=== PATIENT | male | born 1950 | race Caucasian/White ===

== ENCOUNTER 2023-11-25 22:12 | Observation (INO) | payer MEDICARE ==
[2023-11-25 23:14] LABS: Absolute Neutrophil Ct (ANC) 3.36 x10^3/uL (1.78-5.38); BASOPHIL % 0.6 % (0.2-1.2); Basophil (Absolute #) 0.03 x10^3/uL (0.01-0.08); Eosinophil % 6.3 % (0.8-7.0); Eosinophil (Absolute #) 0.33 x10^3/uL (0.04-0.54); Hematocrit 40.3 % (40.1-51.0); Hemoglobin 13.5 g/dL (13.7-17.5); IMMATURE GRAN # 0.02 x10^3u/L (0.001-0.031); IMMATURE GRAN % 0.4 % (0.001-0.429); Lymphocyte (Absolute #) 1.02 x10^3/uL (1.32-3.57); Lymphocytes % 19.4 % (21.8-53.1); Mean Corpuscular Hemoglobin 29.2 pg (25.7-32.2); Mean Corpuscular Hgb Concent. 33.5 g/dL (32.3-36.5); Mean Platelet Volume 9.5 fL (9.4-12.4); Monocyte (Absolute #) 0.51 x10^3/uL (0.30-0.82); Monocytes % 9.7 % (5.3-12.2); Neutrophil % 63.6 % (34.0-67.9); Platelet Count 191 x10^3/uL (163-337); Red Blood Count 4.63 x10^6/uL (4.63-6.08); Red Cell Distribution Width 13.8 % (11.6-14.4); White Blood Count 5.3 x10^3/uL (4.23-9.07)
--- NOTE | 2023-11-25 23:16 | ERPHSYRPT ---
- History of Present Illness Time Seen by Provider: 11/25/23 22:13 Source: patient, family Exam Limitations: no limitations Patient Subjective Stated Complaint: pt states his bp was high at home today- 176/97. and he has had dizzieness when shelbi standing up Triage Nursing Assessment: pt alert and oriented, answers questions approp. pt ambulates into room with steady gait noted. respirations nonlabored. skin warm and dry. pupils equal and reactive. pt moves extremities without diff. Physician History: 73-year-old male with history of hypertension presented in the ER with complaints of sudden onset feeling dizziness/spinning sensation around 9:40 PM when he stood up to go to the bathroom. Patient reports he stands up, feels spinning sensation inside the head and gets off balance with tendency to fall onto 1 side or the other. Denies any numbness tingling or weakness. No visual disturbance. Patient checked his blood pressure which was in 170s. Denies any chest pain palpitations or shortness of breath. No nausea vomiting or diarrhea. Allergies/Adverse Reactions: Penicillins Allergy (Unknown, Verified 11/25/23 22:42) Home Medications: Amlodipine Besylate/Benazepril [Amlodipine-Benazepril 5-40 mg] 1 each PO DAILY 11/25/23 [History] Triamterene/Hydrochlorothiazid [Triamterene-Hctz 37.5-25 mg Tb] 1 each PO DAILY 11/25/23 [History] Hx Tetanus, Diphtheria Vaccination/Date Given: No (unsure) Hx Influenza Vaccination/Date Given: No Hx Pneumococcal Vaccination/Date Given: No Immunizations Up to Date: No Travel Risk - International Travel Have you traveled outside of the country in past 3 weeks: No - Emerging Infectious Disease Are you exhibiting symptoms associated with any current EIDs: No - Review of Systems Constitutional: No Symptoms Eyes: No Symptoms Ears, Nose, & Throat: No Symptoms Respiratory: No Symptoms Cardiac: No Symptoms Abdominal/Gastrointestinal: No Symptoms Genitourinary Symptoms: No Symptoms Musculoskeletal: No Symptoms Skin: No Symptoms Neurological: Dizziness Psychological: No Symptoms Endocrine: No Symptoms Hematologic/Lymphatic: No Symptoms Immunological/Allergic: No Symptoms - Past Medical History Cardiac History: Hypertension Other Medical History: hx of cancer - Social History Smoking Status: Never smoker Exposure to second hand smoke: No Drug Use: none - Social Determinants of Health Will the patient participate in the screening: Declined to provide - Nursing Vital Signs Nursing Vital Signs: Initial Vital Signs Temperature 97.7 F 11/25/23 22:24 Pulse Rate 82 11/25/23 22:24 Respiratory Rate 18 11/25/23 22:24 Blood Pressure 168/89 11/25/23 22:24 O2 Sat by Pulse Oximetry 97 11/25/23 22:24 Pain Scale Pain Intensity 0 - Erica Coma Scale Best Eye Response ([place]): (4) open spontaneously Best Verbal Response ([place]): (5) oriented Best Motor Response ([place]): (6) obeys commands Erica Total: 15 - Physical Exam General Appearance: no apparent distress, alert, anxiety Eye Exam: bilateral eye: normal inspection, PERRL, EOMI Ears, Nose, Throat Exam: normal ENT inspection, TMs normal, pharynx normal, moist mucous membranes Neck Exam: normal inspection, non-tender, supple, full range of motion Respiratory: normal breath sounds, lungs clear Cardiovascular: regular rate/rhythm, normal heart sounds Gastrointestinal: soft, normal bowel sounds, No tenderness Back Exam: normal inspection Extremity Exam: normal inspection, normal range of motion, pelvis stable Mental Status: alert, 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, 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 Exam: normal hearing, normal speech, PERRL Coordination/Gait: normal finger to nose, normal cerebellar function Motor/Sensory: no motor deficit, no sensory deficit, no pronator drift, negative Babinski's sign Skin Exam: normal color SpO2 Interpretation: normal SpO2: 97 O2 Delivery: Room Air - Course EKG Interpreted by Me: RATE (80), Sinus Rhythm, NORMAL AXIS, NORMAL INTERVALS, NORMAL QRS Ordered Tests: Active Orders 24 hr Category Date Time Status Admission Discharge Rn STAT Care 11/25/23 22:37 Active EKG-ER Only STAT Care 11/25/23 22:36 Active IV Insertion STAT Care 11/25/23 22:36 Active NPO (ED) STAT Care 11/25/23 22:36 Active CHEST 1 VIEW (PORTABLE) Stat Exams 11/25/23 22:[address] ANGIOGRAPHY NECK [CT] Stat Exams 11/25/23 23:32 Ordered CTA HEAD W AND/OR WO CONTRAST [CT] Stat Exams 11/25/23 23:32 Ordered HEAD WITHOUT CONTRAST [CT] Stat Exams 11/25/23 22:53 Completed BLOOD CULTURE Stat Lab 11/25/23 23:21 Received CBC W DIFF Stat Lab 11/25/23 23:11 Completed CMP Stat Lab 11/25/23 23:11 Completed Lactic Acid Stat Lab 11/25/23 23:04 Completed MAGNESIUM Stat Lab 11/25/23 23:11 Completed PROTIME WITH INR Stat Lab 11/25/23 23:11 Completed PTT Stat Lab 11/25/23 23:11 Completed TROPONIN Q3H Lab 11/25/23 23:11 Completed TROPONIN Q3H Lab 11/26/23 01:45 Ordered TROPONIN Q3H Lab 11/26/23 04:45 Ordered TROPONIN Q3H Lab 11/26/23 07:45 Ordered UA W/RFX UR CULTURE Stat Lab 11/25/23 22:36 Ordered Medication Summary Generic Name Dose Route Start Last Admin Trade Name Freq PRN Reason Stop Dose Admin Sodium Chloride 1,000 mls @ 100 mls/hr 11/25/23 22:45 11/25/23 23:48 Sodium Chloride 0.9% 1000 Ml IV 12/25/23 22:44 100 mls/hr .Q10H LEANDRO Administration Discontinued Medications Generic Name Dose Route Start Last Admin Trade Name Freq PRN Reason Stop Dose Admin Aspirin 324 mg 11/25/23 23:33 11/25/23 23:48 Aspirin 81 Mg Tab.Chew PO 11/25/23 23:34 324 mg STAT ONE Administration Aspirin Confirm 11/25/23 23:39 Aspirin 81 Mg Tab.Chew Administered 11/25/23 23:40 Dose 324 mg .ROUTE .eblizz-MED ONE Lab/Rad Data: Laboratory Result Diagrams 11/25/23 23:11 11/25/23 23:11 Laboratory Results 11/25/23 11/25/23 11/25/23 Range/Units 23:11 23:11 23:11 WBC (4.23-9.07) x10^3/uL RBC (4.63-6.08) x10^6/uL Hgb (13.7-17.5) g/dL Hct (40.1-51.0) % MCV (79.0-92.2) fL MCH (25.7-32.2) pg MCHC (32.3-36.5) g/dL RDW (11.6-14.4) % Plt Count (163-337) x10^3/uL MPV (9.4-12.4) fL Gran % (34.0-67.9) % Immature Gran % (Auto) (0.001-0.429) % Nucleat RBC Rel Count (0.00-0.2) % Eos # (Auto) (0.04-0.54) x10^3/uL Immature Gran # (Auto) (0.001-0.031) x10^3u/L Absolute Lymphs (auto) (1.32-3.57) x10^3/uL Absolute Monos (auto) (0.30-0.82) x10^3/uL Absolute Nucleated RBC (0.00-0.012) x10^3u/L Lymphocytes % (21.8-53.1) % Monocytes % (5.3-12.2) % Eosinophils % (0.8-7.0) % Basophils % (0.2-1.2) % Absolute Granulocytes (1.78-5.38) x10^3/uL Basophils # (0.01-0.08) x10^3/uL PT 10.9 (9.4-12.5) SECONDS INR 1.00 (0.8-3.0) APTT 27.6 (25.1-36.5) SECONDS Sodium 141 (135-145) mmol/L Potassium 3.5 (3.5-5.1) mmol/L Chloride 107 (98-107) mmol/L Carbon Dioxide 22 (22-30) mmol/L Anion Gap 15.5 H (5-15) MEQ/L BUN 22 H (9-20) mg/dL Creatinine 1.34 H (0.66-1.25) mg/dL Estimated GFR 55.9 ML/MIN Glucose 150 H (74-106) mg/dL Lactic Acid (0.4-2.0) Calcium 9.4 (8.4-10.2) mg/dL Magnesium 1.8 (1.6-2.3) mg/dL Total Bilirubin 0.90 (0.2-1.3) mg/dL AST 35 (17-59) U/L ALT 47 (0-50) U/L Alkaline Phosphatase 75 (38-126) U/L Troponin I < 0.012 (0.000-0.033) ng/mL Serum Total Protein 6.6 (6.3-8.2) g/dL Albumin 4.2 (3.5-5.0) g/dL 11/25/23 11/25/23 Range/Units 23:11 23:04 WBC 5.3 (4.23-9.07) x10^3/uL RBC 4.63 (4.63-6.08) x10^6/uL Hgb 13.5 L (13.7-17.5) g/dL Hct 40.3 (40.1-51.0) % MCV 87.0 (79.0-92.2) fL MCH 29.2 (25.7-32.2) pg MCHC 33.5 (32.3-36.5) g/dL RDW 13.8 (11.6-14.4) % Plt Count 191 (163-337) x10^3/uL MPV 9.5 (9.4-12.4) fL Gran % 63.6 (34.0-67.9) % Immature Gran % (Auto) 0.4 (0.001-0.429) % Nucleat RBC Rel Count 0.0 (0.00-0.2) % Eos # (Auto) 0.33 (0.04-0.54) x10^3/uL Immature Gran # (Auto) 0.02 (0.001-0.031) x10^3u/L Absolute Lymphs (auto) 1.02 L (1.32-3.57) x10^3/uL Absolute Monos (auto) 0.51 (0.30-0.82) x10^3/uL Absolute Nucleated RBC 0.00 (0.00-0.012) x10^3u/L Lymphocytes % 19.4 L (21.8-53.1) % Monocytes % 9.7 (5.3-12.2) % Eosinophils % 6.3 (0.8-7.0) % Basophils % 0.6 (0.2-1.2) % Absolute Granulocytes 3.36 (1.78-5.38) x10^3/uL Basophils # 0.03 (0.01-0.08) x10^3/uL PT (9.4-12.5) SECONDS INR (0.8-3.0) APTT (25.1-36.5) SECONDS Sodium (135-145) mmol/L Potassium (3.5-5.1) mmol/L Chloride (98-107) mmol/L Carbon Dioxide (22-30) mmol/L Anion Gap (5-15) MEQ/L BUN (9-20) mg/dL Creatinine (0.66-1.25) mg/dL Estimated GFR ML/MIN Glucose (74-106) mg/dL Lactic Acid 1.9 (0.4-2.0) Calcium (8.4-10.2) mg/dL Magnesium (1.6-2.3) mg/dL Total Bilirubin (0.2-1.3) mg/dL AST (17-59) U/L ALT (0-50) U/L Alkaline Phosphatase (38-126) U/L Troponin I (0.000-0.033) ng/mL Serum Total Protein (6.3-8.2) g/dL Albumin (3.5-5.0) g/dL - Progress Progress: improved, re-examined Progress Note: 11/25/23 23:50 73-year-old with hypertension is evaluated for sudden onset dizziness/spinning sensation. Patient has no focal neurodeficit. I have obtained stroke protocol CT which is negative. EKG is normal sinus rhythm. Baseline workup showed norm al white count, unremarkable chemistries and negative troponins. Has CKD with stable creatinine of 1.3. Chest x-ray is negative for any acute cardiopulmonary findings reviewed by me, official report is pending. I have obtained [facility] neurology consult, has seen patient, do not think needs any immediate intervention, getting CTAs head and neck now and MRI in the morning. Patient is given full dose aspirin per neurology recommendations, will continue with permissive hypertension. I have discussed with hospitalist Dr. Eric, reviewed history, workup and agreed with admission. Shared the results of workup with patient and family, plan of admission which they understand and agree. Discussed with : Alma Will see patient in: hospital (observation) Counseled pt/family regarding: lab results, diagnosis, need for follow-up, rad results Medical Desision Making - Independent Historian Additional History obtained from: Family - Discussion of managment Care discussed with:: specialist Reviewed:: Test results Agreed on:: Treatment plan, place in obs Will see patient: in hospital ([facility] neurology, Dr. Eric hospitalist) - Diagnostic Testing Diagnostic test were ordered, analyzed, and reviewed by me: Yes Radiological Interpretation: Interpreted by me, Reviewed by me, Teleradiologist Report - Departure Departure Disposition: Observation Clinical Impression: Dizziness Condition: Stable Critical Care Time: No Referrals: ANGELES FORRESTER [Primary Care Provider] - Follow up/PCP as directed
--- NOTE | 2023-11-25 23:23 | XRAY ---
CLINICAL HISTORY: dizziness COMPARISON: None. TECHNIQUE: Axial noncontrast CT scan of the brain was performed from the skull base to the high parietal region. One of the following dose reduction techniques were utilized for this exam: Automated exposure control, adjustment of the mA and/or kV according to patient size, use of iterative reconstruction. 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 There are few tiny ill-defined iso-to hypodense areas noted in the subcortical white matter bilaterally, suggestive of microvascular ischemic changes. The ventricular system, cortical sulci and basal cisterns are prominent consistent with senile changes. The rets of visualized brain parenchyma shows normal appearance. Georges-white matter differentiation is maintained. Normal CT appearance of the posterior fossa structures namely the cerebellar hemispheres, brainstem and cerebellar peduncles. The IACs are unremarkable. The cerebello-pontine angles are clear. The osseous structures in the skull base are unremarkable. No definite calvarium fractures. The scanned paranasal sinuses show mucosal thickening with scattered hypodensities in bilateral maxillary sinuses, representing inspissated mucus/superadded fungal infection. Mucosal thickening is also identified in bilateralethmoid and frontal sinuses. IMPRESSION: 1. No major acute territorial infarction at present study. Early changes of acute ischemic infarct may sometimes not be detected on a CT scan. If clinically suspicious, MRI with diffusion-weighted imaging is recommended for further evaluation. 2. 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 3. Chronic microvascular ischemic angiopathy with senile cortical atrophy Electronically Signed by: Geraldine Carrillo MD. (11/25/2023 23:18:10 EDT)
[2023-11-25 23:27] LABS: ALBUMIN 4.2 g/dL (3.5-5.0); ANION GAP 15.5 MEQ/L (5-15); BILIRUBIN,TOTAL 0.9 mg/dL (0.2-1.3); Calcium 9.4 mg/dL (8.4-10.2); Creatinine 1 1.34 mg/dL (0.66-1.25); EST GLOMERULAR FILTRATION RATE 55.9 ML/MIN; MAGNESIUM 1.8 mg/dL (1.6-2.3); Potassium 3.5 mmol/L (3.5-5.1); Total Protein 6.6 g/dL (6.3-8.2)
[2023-11-25 23:28] LABS: PROTIME 10.9 SECONDS (9.4-12.5); PTT 27.6 SECONDS (25.1-36.5)
--- NOTE | 2023-11-25 23:34 | PCM.CONS ---
History of Present Illness - Neuro Consultation Date of Consultation Date: 11/25/23 ED Arrival Date & Time: 11/25/23 22:12 Providers: Attending Provider: ED Provider: PABLO CARTER MD Consulting Provider: KATINA SILVEIRA MD cc:: The requesting physician will be sent a copy of the consult. - History of Present Illness HPI: The patient is a 73M Teleneurology Attestation & Consent: As the provider for this telehealth consult requested by the patients primary attending physician, I attest that I introduced myself to the patient, provided my credentials, disclosed my loc ation, and determined that, based on a review of the patients chart and discussion with the patients primary team, telemedicine via a real-time, two- way, interactive audio and video platform is an appropriate and effective means of providing this service. The patient and I mutually agree that this visit is appropriate for telemedicine. The patient has consented to this telemedicine visit. Last known normal: 8:30pm RADIO ELECTRONICS TECHNICIAN Time of stroke alert: 10:12 PM RADIO ELECTRONICS TECHNICIAN Time stroke alert page returned: 10:16 PM RADIO ELECTRONICS TECHNICIAN Was the patient seen on camera?: yes 73M presents with acute onset of room spinning sensation which started around 8:30pm RADIO ELECTRONICS TECHNICIAN. He says he was laying down and experienced severe room spinning sensation when he tried to stand up. He denies headache, N/V, tinnitus, focal weakness, paresthesia,h/o stroke. Room spinning sensation has persisted up to presentation and is exacerbated by standing up too quick and relieved by laying still. Nurse and patient's sister Sharda are present in the room. Review of Systems - Review of Systems Review of Systems (Narrative): Pertinent positive and negative findings as per HPI. All other systems negative. Constitutional: Denies fevers, chills, weight loss ENT: Denies tinnitus Ophthalmology: Denies diplopia, blurred vision, vision loss Respiratory: Denies SOB, cough Cardiovascular: Denies chest pains, palpitations GI: Denies nausea, vomiting : Denies hematuria Hematology: Denies excessive bleeding Musculoskeletal: Denies back pain, neck pain, joint pain Neurology: Denies headache, altered mentation, syncope Mental Health: Denies anxiety Dermatology: Denies rash - Past Medical History Cardiac History: Hypertension Comment: hx of cancer - Social History Smoking Status: Never smoker Exposure to second hand smoke: No Alcohol: None Drug Use: none - Social Determinants of Health Will the patient participate in the screening: Declined to provide Physical Exam - Vital Signs Vital Signs: Vital Signs - 24 hr 11/25/23 11/25/23 22:24 23:29 Temperature 97.7 F Pulse Rate 82 Respiratory 18 Rate Blood Pressure 168/89 [Left Arm] O2 Sat by Pulse 97 97 Oximetry - Physical Exam Tele-Neuro Physical Exam (Narrative): Gen: Well developed, well nourished. No acute distress. MS: Awake and oriented. Alert. Fund of knowledge, memory, and language at baseline. CV: Regular rate. No edema. computer hardware developer: AR, EOMI. +blink. Unable to visualize fundi. Sensation intact. Face is symmetric. Hearing intact. Trapezii strong. Tongue midline. Motor: Antigravity in all 4 extremities. Normal tone and bulk. Sens: Intact to light touch in all 4 extremities. MSR: Unable to assess through telemedicine, no clonus noted. Mvmt: No tremors noted. MAI/FTN intact. Gait: Deferred. NIHSS Mental status (0-3): 0 Month/age (0-2): 0 Commands (0-2): 0 Best Gaze (0-2): 0 Visual Kim (0-3):0 Facial weakness (0-3): 0 LUE (0-4): 0 RUE (0-4): 0 LLE (0-4): 0 RLE (0-4): 0 Ataxia (0-2): 0 Sensation (0-2): 0 Aphasia (0-3): 0 Dysarthria (0-2): 0 Extinction (0-2): 0 NIHSS Total: 0 Results - Labs Lab/Micro Results: Lab Results-Last 24 Hours 11/25/23 11/25/23 11/25/23 Range/Units 23:04 23:11 23:11 WBC 5.3 (4.23-9.07) x10^3/uL RBC 4.63 (4.63-6.08) x10^6/uL Hgb 13.5 L (13.7-17.5) g/dL Hct 40.3 (40.1-51.0) % MCV 87.0 (79.0-92.2) fL MCH 29.2 (25.7-32.2) pg MCHC 33.5 (32.3-36.5) g/dL RDW 13.8 (11.6-14.4) % Plt Count 191 (163-337) x10^3/uL MPV 9.5 (9.4-12.4) fL Gran % 63.6 (34.0-67.9) % Immature Gran % (Auto) 0.4 (0.001-0.429) % Nucleat RBC Rel Count 0.0 (0.00-0.2) % Eos # (Auto) 0.33 (0.04-0.54) x10^3/uL Immature Gran # (Auto) 0.02 (0.001-0.031) x10^3u/L Absolute Lymphs (auto) 1.02 L (1.32-3.57) x10^3/uL Absolute Monos (auto) 0.51 (0.30-0.82) x10^3/uL Absolute Nucleated RBC 0.00 (0.00-0.012) x10^3u/L Lymphocytes % 19.4 L (21.8-53.1) % Monocytes % 9.7 (5.3-12.2) % Eosinophils % 6.3 (0.8-7.0) % Basophils % 0.6 (0.2-1.2) % Absolute Granulocytes 3.36 (1.78-5.38) x10^3/uL Basophils # 0.03 (0.01-0.08) x10^3/uL Sodium 141 (135-145) mmol/L Potassium 3.5 (3.5-5.1) mmol/L Chloride 107 (98-107) mmol/L Carbon Dioxide 22 (22-30) mmol/L Anion Gap 15.5 H (5-15) MEQ/L BUN 22 H (9-20) mg/dL Creatinine 1.34 H (0.66-1.25) mg/dL Estimated GFR 55.9 ML/MIN Glucose 150 H (74-106) mg/dL Lactic Acid 1.9 (0.4-2.0) Calcium 9.4 (8.4-10.2) mg/dL Magnesium 1.8 (1.6-2.3) mg/dL Total Bilirubin 0.90 (0.2-1.3) mg/dL AST 35 (17-59) U/L ALT 47 (0-50) U/L Alkaline Phosphatase 75 (38-126) U/L Serum Total Protein 6.6 (6.3-8.2) g/dL Albumin 4.2 (3.5-5.0) g/dL - Radiology Orders Radiology Orders: Radiology Procedures Category Date Time Status CHEST 1 VIEW (PORTABLE) Stat Exams 11/25/23 22:53 Taken HEAD WITHOUT CONTRAST [CT] Stat Exams 11/25/23 22:53 Completed - CT Impressions CT Head w/contrast Status: discussed w/ radiologist (discussed with Dr Carter) Impressions & Recommendations - ED Arrival Time ED Arrival Date & Time: ED Arrival Date and Time 11/25/23 22:12 Last known well time: - NIHSS NIHSS: 0 Pre-Admission mRS: 0 Is patient an IV TPA candidate (if no specify reason): No If not, specify reason:: NIHSS=0, likley peripheral vertigo IV Thrombolysis Standard of Care: . Assessment & Plan - Encounter Encounter: Acute stroke vs peripheral vertigo Stroke acute management:not candidate for iv thrombolysis due to NIHSS=0 and likelihood of peripheral vertigo - Admit to stroke unit - Frequent neuro-checks (q4h) - Permissive HTN for 24h:systolic BP goal up to 220, diastolic up to 120 mmHg for 24h. - Only treat if SBP>220 and or DBP>120 then gradually lower BP after 24hrs to goal <130/80 - Baseline EKG and CXR - Basic labs: CBC, CMP, coagulation panel and troponin - Intravenous hydration with normal saline at 75cc per hour - NPO until after WEEDER eval -Replace electrolytes prn-Keep K >4.0, Mg > 2.0. - Head of bed > 30 degrees for aspiration prevention and aspiration precautions -meclizine 25mg tid prn for vertigo -vestibular rehab Stroke workup: -CTH:no acute intracranial process. remote left basal ganglia infarct -stat CTA head and neck:If LVO, get stat neuro interventional consult -MRI: -Trans-thoracic echocardiogram with bubble study -Continuous cardiac telemetry to monitor for arrhythmia -Stroke labwork: HgbA1C, lipid panel, urine drug screen Secondary prevention of stroke: -Aspirin 325mg daily -Atorvastatin 40 mg daily (long-term goal LDL < 70) -Tight glucose control (long-term goal HgbA1c < 7%) -Stroke education and counseling -If smoker, smoking counseling and offer assistance with smoking cessation (possible nicotine patch) Stroke rehabilitation: -Physical therapy, occupational therapy, speech therapy consults -Consult social work and case management for help with discharge Other medical issues: HTN: Medical Decision making: Acute issues prompting hospitalization enumerated, reviewed and managed individually as above. Complexity of Chronic Problems enumerated, reviewed and managed individually as above. Independently interpreted labs and radiology. Risk of morbidity reviewed. Additional testing/treatment as discussed individually above. Discussed findings with patient/family, charge nurse/bedside nurse. Included in the discussion were the latest clinical, laboratory and imaging findings. We also discussed updated working diagnosis, overall impression and updated plan of care. In this discussion, current plan for treatment, medication indication discussed. Patient/family member agreeable to discussed plan of care. I answered all the questions to their satisfaction. Acute care plan was discussed with Dr Carter Thank you for allowing us to participate in this patients care. Please call [facility] with questions, concerns, or change in patients neurological status.
[2023-11-25] MEDS ORDERED: BABY ASPIRIN 81 MG CHEW ONE (23:39)
[2023-11-25] MEDS: Sodium Chloride 0.9% 1000 ML 1,000 ML IV SCH (23:48)
[2023-11-25] MEDS: BABY ASPIRIN 81 MG CHEW PO ONE (23:48)
--- NOTE | 2023-11-26 01:13 | XRAY ---
CLINICAL HISTORY: dizziness COMPARISON: CT head same date reviewed TECHNIQUE: Axial CT angiography of the head was done with contrast and sagittal and coronal reformats with MIP reconstructions. One of the following dose reduction techniques was utilized for this exam: Automated exposure control, adjustment of the mA and/or kV according to patient size, use of iterative reconstruction. 100cc Isovue 370. FINDINGS: The cavernous portions of bilateral internal carotid arteries show minimal intimal calcification. Bilateral anterior and middle cerebral arteries appear normal in caliber and contrast opacification. The basilar artery and bilateral posterior cerebral arteries appear normal in caliber and contrast opacification. The right vertebral artery is hypoplastic with the dominant left vertebral artery, otherwise visualized vertebral arteries show normal contrast opacification. No evidence of definite thrombus / arteriovenous malformation. IMPRESSION: No significant major vascular thrombosis in CT angiography of the head. Electronically Signed by: Geraldine Carrillo MD. (11/26/2023 01:09:03 EDT)
--- NOTE | 2023-11-26 01:29 | XRAY ---
CLINICAL HISTORY: dizziness COMPARISON: None. TECHNIQUE: Axial CT angiography of the neck was done with contrast and sagittal and coronal reformats with MIP reconstructions. One of the following dose reduction techniques was utilized for this exam: Automated exposure control, adjustment of the mA and/or kV according to patient size, and use of iterative reconstruction. (100cc Isovue 370). CTDI: 17.22mGy; DLP: 707.51mGy-cm. FINDINGS: The aortic arch shows no significant atherosclerotic changes or calcified plaques. Normal branching pattern noted. Bilateral common carotid arteries show mild atherosclerotic changes, otherwise normal in contrast to opacification. Calcified plaques are seen at bilateral carotid bulbs and ostial/proximal segments of the internal carotid arteries bilaterally. A small eccentric fibrofatty plaque was seen at the ostial/proximal segment of the right internal carotid artery, causing nearly 20% luminal narrowing. The cervical portions of bilateral internal carotid arteries appear normal in caliber and contrast opacification. Bilateral external carotid arteries appear normal in caliber and contrast opacification. The right vertebral artery is hypoplastic with the dominant left vertebral artery, otherwise, visualized vertebral arteries show normal contrast opacification. No arteriovenous malformation was noted. IMPRESSION: 1. No critical thrombosis was seen in major neck vessels. 2. Calcified plaques at bilateral carotid bulbs and osteoproximal segment of the internal carotid arteries. 3. A small eccentric fibrofatty plaque was seen at the osteoproximal segment of the right internal carotid artery, causing nearly 20% luminal narrowing. Electronically Signed by: Geraldine Carrillo MD. (11/26/2023 01:24:11 EDT)
--- NOTE | 2023-11-26 04:45 | PCM.HP ---
History of Present Illness - Chief Complaint Chief Complaint: dizziness Date: 11/26/23 History of Present Illness: Mr. Avila is 73 year-old gentleman with HTN and CKD who presents wt dizziness. He admits to sudden onset of dizziness when going from a sitting to a standing position this evening thus prompting him to seek medical attention. These episodes were not associated with syncope, presyncope, or any neurological symptoms or signs, and his dizziness would improve with sitting. Upon arrival to [place], his blood pressure was 170s/80s in the setting of laboratory data that was remarkable only for a slightly elevated Cr and imaging that was negative. On my examination, he is resting comfortably currently denying any fevers, chills, nausea, vomiting, diarrhea, syncope, presyncope, visual changes, orthopnea, PND, odynophagia, dysphagia, chest pain, shortness of breath, belly pain, dysuria, hematuria, melena, hematochezia, or neurological changes. All other systems were reviewed and were negative. - Review of Systems Constitutional: No Other ( PER HPI) Medications & Allergies Home Medications: Home Medication List Amlodipine Besylate/Benazepril [Amlodipine-Benazepril 5-40 mg] 1 each PO DAILY 11/25/23 [History Confirmed 11/25/23] Triamterene/Hydrochlorothiazid [Triamterene-Hctz 37.5-25 mg Tb] 1 each PO DAILY 11/25/23 [History Confirmed 11/25/23] Allergies/Adverse Reactions: Allergies Allergy/AdvReac Type Severity Reaction Status Date / Time Penicillins Allergy Unknown Verified 11/25/23 22:42 - Past Medical History Past Medical History: Yes Neurological History: No Pertinent History ENT History: No Pertinent History Cardiac History: Hypertension Respiratory History: No Pertinent History Endocrine Medical History: No Pertinent History Musculoskelatal History: No Pertinent History GI Medical History: No Pertinent History History: No Pertinent History Pyscho-Social History: No Pertinent History Male Reproductive Disorders: Testicular Cancer Comment: hx of cancer - Past Surgical History Past Surgical History: Yes Neuro Surgical History: No Pertinent History Cardiac History: No Pertinent History Respiratory Surgery: No Pertinent History GI Surgical History: No Pertinent History Genitourinary Surgical Hx: No Pertinent History Musculskeletal Surgical Hx: No Pertinent History Male Surgical History: Testicular Surgery Significant Family History: no pertinent family hx - Social History Smoking Status: Never smoker Exposure to second hand smoke: No Alcohol: None Drug Use: none - Social Determinants of Health Will the patient participate in the screening: Declined to provide - Physical Exam Vital Signs: Vital Signs - 24 hr Temp Pulse Resp BP BP Pulse Ox 11/26/23 04:00 97.2 F 76 19 162/86 94 L 11/26/23 02:15 97.2 F 76 19 162/86 94 L 11/26/23 01:00 76 19 144/86 95 11/26/23 00:59 96 11/26/23 00:48 75 16 153/89 96 11/26/23 00:00 76 17 149/87 97 11/25/23 23:55 97 11/25/23 23:32 97 11/25/23 23:00 79 18 156/90 97 11/25/23 22:40 176/95 96 11/25/23 22:24 97.7 F 82 18 168/89 97 General Appearance: no apparent distress, alert Neurologic Exam: alert, 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, cooperative, normal mood/affect, nml cerebellar function, nml station & gait, sensation nml, No motor deficits Eye Exam: PERRL/EOMI, eyes nml inspection Ears, Nose, Throat Exam: normal ENT inspection, TMs normal, pharynx normal, moist mucous membranes Neck Exam: normal inspection, non-tender, supple, full range of motion Respiratory Exam: normal breath sounds, lungs clear, No respiratory distress Cardiovascular Exam: regular rate/rhythm, normal heart sounds, normal peripheral pulses Gastrointestinal/Abdomen Exam: soft, normal bowel sounds, No tenderness, No mass Back Exam: normal inspection, normal range of motion, No CVA tenderness, No vertebral tenderness Extremity Exam: normal inspection, normal range of motion, pelvis stable Skin Exam: normal color, warm, dry, No rash Lymphatic Exam: No adenopathy Results - Labs Lab/Micro Results: Lab Results-Last 24 Hours 11/25/23 11/25/23 11/25/23 Range/Units 23:04 23:11 23:11 WBC 5.3 (4.23-9.07) x10^3/uL RBC 4.63 (4.63-6.08) x10^6/uL Hgb 13.5 L (13.7-17.5) g/dL Hct 40.3 (40.1-51.0) % MCV 87.0 (79.0-92.2) fL MCH 29.2 (25.7-32.2) pg MCHC 33.5 (32.3-36.5) g/dL RDW 13.8 (11.6-14.4) % Plt Count 191 (163-337) x10^3/uL MPV 9.5 (9.4-12.4) fL Gran % 63.6 (34.0-67.9) % Immature Gran % (Auto) 0.4 (0.001-0.429) % Nucleat RBC Rel Count 0.0 (0.00-0.2) % Eos # (Auto) 0.33 (0.04-0.54) x10^3/uL Immature Gran # (Auto) 0.02 (0.001-0.031) x10^3u/L Absolute Lymphs (auto) 1.02 L (1.32-3.57) x10^3/uL Absolute Monos (auto) 0.51 (0.30-0.82) x10^3/uL Absolute Nucleated RBC 0.00 (0.00-0.012) x10^3u/L Lymphocytes % 19.4 L (21.8-53.1) % Monocytes % 9.7 (5.3-12.2) % Eosinophils % 6.3 (0.8-7.0) % Basophils % 0.6 (0.2-1.2) % Absolute Granulocytes 3.36 (1.78-5.38) x10^3/uL Basophils # 0.03 (0.01-0.08) x10^3/uL PT (9.4-12.5) SECONDS INR (0.8-3.0) APTT (25.1-36.5) SECONDS Sodium 141 (135-145) mmol/L Potassium 3.5 (3.5-5.1) mmol/L Chloride 107 (98-107) mmol/L Carbon Dioxide 22 (22-30) mmol/L Anion Gap 15.5 H (5-15) MEQ/L BUN 22 H (9-20) mg/dL Creatinine 1.34 H (0.66-1.25) mg/dL Estimated GFR 55.9 ML/MIN Glucose 150 H (74-106) mg/dL Lactic Acid 1.9 (0.4-2.0) Calcium 9.4 (8.4-10.2) mg/dL Magnesium 1.8 (1.6-2.3) mg/dL Total Bilirubin 0.90 (0.2-1.3) mg/dL AST 35 (17-59) U/L ALT 47 (0-50) U/L Alkaline Phosphatase 75 (38-126) U/L Troponin I (0.000-0.033) ng/mL Serum Total Protein 6.6 (6.3-8.2) g/dL Albumin 4.2 (3.5-5.0) g/dL 11/25/23 11/25/23 11/26/23 Range/Units 23:11 23:11 01:51 WBC (4.23-9.07) x10^3/uL RBC (4.63-6.08) x10^6/uL Hgb (13.7-17.5) g/dL Hct (40.1-51.0) % MCV (79.0-92.2) fL MCH (25.7-32.2) pg MCHC (32.3-36.5) g/dL RDW (11.6-14.4) % Plt Count (163-337) x10^3/uL MPV (9.4-12.4) fL Gran % (34.0-67.9) % Immature Gran % (Auto) (0.001-0.429) % Nucleat RBC Rel Count (0.00-0.2) % Eos # (Auto) (0.04-0.54) x10^3/uL Immature Gran # (Auto) (0.001-0.031) x10^3u/L Absolute Lymphs (auto) (1.32-3.57) x10^3/uL Absolute Monos (auto) (0.30-0.82) x10^3/uL Absolute Nucleated RBC (0.00-0.012) x10^3u/L Lymphocytes % (21.8-53.1) % Monocytes % (5.3-12.2) % Eosinophils % (0.8-7.0) % Basophils % (0.2-1.2) % Absolute Granulocytes (1.78-5.38) x10^3/uL Basophils # (0.01-0.08) x10^3/uL PT 10.9 (9.4-12.5) SECONDS INR 1.00 (0.8-3.0) APTT 27.6 (25.1-36.5) SECONDS Sodium (135-145) mmol/L Potassium (3.5-5.1) mmol/L Chloride (98-107) mmol/L Carbon Dioxide (22-30) mmol/L Anion Gap (5-15) MEQ/L BUN (9-20) mg/dL Creatinine (0.66-1.25) mg/dL Estimated GFR ML/MIN Glucose (74-106) mg/dL Lactic Acid (0.4-2.0) Calcium (8.4-10.2) mg/dL Magnesium (1.6-2.3) mg/dL Total Bilirubin (0.2-1.3) mg/dL AST (17-59) U/L ALT (0-50) U/L Alkaline Phosphatase (38-126) U/L Troponin I < 0.012 < 0.012 (0.000-0.033) ng/mL Serum Total Protein (6.3-8.2) g/dL Albumin (3.5-5.0) g/dL - Radiology Impressions Radiology Exams & Impressions: Radiology Procedures Category Date Time Status CHEST 1 VIEW (PORTABLE) Stat Exams 11/25/23 22:[address] ANGIOGRAPHY NECK [CT] Stat Exams 11/26/23 00:29 Completed CTA HEAD W AND/OR WO CONTRAST [CT] Stat Exams 11/26/23 00:29 Completed HEAD WITHOUT CONTRAST [CT] Stat Exams 11/25/23 22:53 Completed MRI BRAIN W/O CONTRAST [MRI] Routine Exams 11/26/23 04:39 Ordered Assessment/Plan (1) Dizziness Current Visit: Yes Status: Acute Assessment & Plan: ASSESSMENT 1. Dizziness 2. Acute on Chronic Kidney Disease 3. Hypertension PLAN 1. Gentle fluids 2. CTA negative; neurology exam unremarkable; Neurology following 3. MRI in AM 4. Hold antihypertensives - allow for permissive hypertension Lovenox The entirety of this encounter was done via telemedicine with audio and visual. Consent was obtained for a telemedicine encounter. Arnie Eric MD Pulmonary and Critical Care Medicine Code(s): R42 - DIZZINESS AND GIDDINESS Telemedicine Encounter - Telemedicine Encounter Telemedicine Encounter: "The entirety of this encounter was performed via Telemedicine" This visit was performed using real-time audio and video connection between my location and thepatients locationwith the assistance of a surrogateat the patients location. Written or verbal consent was obtained from the patient/guardian to perform this visit usingsynchronoustelemedicine technology. Any patient questions regarding the telemedicine interaction were answered.
[2023-11-26 05:13] LABS: Absolute Neutrophil Ct (ANC) 3.71 x10^3/uL (1.78-5.38); BASOPHIL % 0.4 % (0.2-1.2); Basophil (Absolute #) 0.02 x10^3/uL (0.01-0.08); Eosinophil % 4.3 % (0.8-7.0); Eosinophil (Absolute #) 0.22 x10^3/uL (0.04-0.54); Hematocrit 38.8 % (40.1-51.0); Hemoglobin 13.2 g/dL (13.7-17.5); IMMATURE GRAN # 0.02 x10^3u/L (0.001-0.031); IMMATURE GRAN % 0.4 % (0.001-0.429); Lymphocyte (Absolute #) 0.84 x10^3/uL (1.32-3.57); Lymphocytes % 16.4 % (21.8-53.1); Mean Cell Volume 86.4 fL (79.0-92.2); Mean Corpuscular Hemoglobin 29.4 pg (25.7-32.2); Mean Platelet Volume 9.7 fL (9.4-12.4); Monocyte (Absolute #) 0.32 x10^3/uL (0.30-0.82); Monocytes % 6.2 % (5.3-12.2); Neutrophil % 72.3 % (34.0-67.9); Platelet Count 190 x10^3/uL (163-337); Red Blood Count 4.49 x10^6/uL (4.63-6.08); Red Cell Distribution Width 13.6 % (11.6-14.4); White Blood Count 5.1 x10^3/uL (4.23-9.07)
[2023-11-26 05:40] LABS: ALBUMIN 3.9 g/dL (3.5-5.0); ANION GAP 14.2 MEQ/L (5-15); BILIRUBIN,TOTAL 1.1 mg/dL (0.2-1.3); Calcium 8.9 mg/dL (8.4-10.2); Creatinine 1 1.2 mg/dL (0.66-1.25); EST GLOMERULAR FILTRATION RATE 63.9 ML/MIN; Potassium 3.6 mmol/L (3.5-5.1); Total Protein 6.5 g/dL (6.3-8.2)
[2023-11-26 06:58] VITALS: RESP 16
[2023-11-26 08:19] LABS: Appearance Clear (Clear); Bacteria None Seen /HPF (None Seen); Bilirubin Negative (Negative); Blood Negative (Negative); Epithelial Cells None Seen /HPF (None Seen); Glucose, Urine Negative (Negative); Hyaline Casts NONE SEEN /LPF (0-2); Ketones Negative (Negative); Leukocyte Esterase Negative (Negative); Nitrite Negative (Negative); Ph 5.5 (4.6-8.0); Protein,Urine Dip Negative (Negative); RBC 0-2 /HPF (0-5); Specific Gravity >=1.030 (1.005-1.030); WBC 0-2 /HPF (0-5)
[2023-11-26 08:21] LABS: ADD URINE CULTURE? NO (NO)
--- NOTE | 2023-11-26 08:46 | XRAY ---
Indication: Dizziness. Comparison: None Portable chest hyperinflated and clear. Heart is enlarged. Bony thorax intact with osteopenia, mild degenerative changes, and mild double curvature scoliosis Impression: Nonacute chest with chronic features.
[2023-11-26] MEDS: LIPITOR 40MG PO SCH (08:51)
[2023-11-26] MEDS: LIPITOR 40MG PO STA (09:02)
[2023-11-26] MEDS: ENOXAPARIN SODIUM SQ SCH (10:16)
[2023-11-26] MEDS: ECOTRIN 81 MG PO SCH (10:16)
[2023-11-26] MEDS: ANTIVERT 25 MG PO SCH (10:21)
--- NOTE | 2023-11-26 13:49 | XRAY ---
Indication: Dizziness. CVA. Sagittal, coronal, and axial MRI brain performed without contrast using T1, T2, FLAIR, diffusion, and ADC sequences. Comparison: None Age-appropriate global atrophy and mild periventricular degenerative micro-ischemia signal bilaterally. Left basal ganglia demonstrates 1.1 cm focus old infarct. No acute intracranial hemorrhage, abnormal extra-axial fluid collection, or mass effect. Diffusion images are negative for restricted signal. Fourth ventricle is midline without hydrocephalus. 7/8 cranial nerve complex bilaterally symmetric. Normal flow void signal within the major intracerebral circulation. Normal appearing craniocervical junction and sella turcica. Near complete opacification both frontal, both ethmoid, and lesser degree both maxillary sinuses. Impression: Atrophy and degenerative micro-ischemia within normal limits. Small remote infarct left basal ganglia. No acute intracranial abnormalities or evidence for evolving large vessel territory stroke. Incidental pansinusitis.
[2023-11-26 15:48] VITALS: BP 138/77; PULSE 84; TEMP 98.2; O2SAT 92
--- NOTE | 2023-11-26 16:17 | PCM.DS ---
Discharge Summary Date of Admission: 11/26/23 00:05 Date of Discharge: 11/26/23 Admitting Physician: MEG TEMPLETON MD Primary Care Provider: ANGELES FORRESTER Allergies Allergies Penicillins Allergy (Unknown, Verified 11/25/23 22:42) Hospital Summary - Hospital Course Hospital Course: Mr. Avila is 73 year-old gentleman with HTN and CKD who presents wt dizziness. He admits to sudden onset of dizziness when going from a sitting to a standing position this evening thus prompting him to seek medical attention. These episodes were not associated with syncope, presyncope, or any neurological symptoms or signs, and his dizziness would improve with sitting. Upon arrival to [facility], his blood pressure was 170s/80s in the setting of laboratory data that was remarkable only for a slightly elevated Cr and imaging that was negative. CT head Since admission resting comfortably currently denying any fevers, chills, nausea, vomiting, diarrhea, syncope, presyncope, visual changes, orthopnea, PND, odynophagia, dysphagia, chest pain, shortness of breath, belly pain, dysuria, hematuria, melena, hematochezia, or neurological changes. No further episodes of dizziness. JANES has resolved. CT no acute intracranial process. remote left basal ganglia infarct. MRI brain with Atrophy and degenerative micro-ischemia within normal limits.Small remote infarct left basal ganglia. No acute intracranial abnormalities or evidence for evolving large vessel territory stroke. No significant major vascular thrombosis in CT angiography of the head. CTA neck No critical thrombosis was seen in major neck vessels. Calcified plaques at bilateral carotid bulbs and osteoproximal segment of the internal carotid arteries. A small eccentric fibrofatty plaque was seen at the osteoproximal segment of the right internal carotid artery, causing nearly 20% luminal narrowing. Neurology consulted with recs to begin ASA therapy and atorvastatin 40mg. Meclizine 25mg tid prn for vertigo. Patient to follow up OP with PCP. Discharge Note Latest Assessment & Plan (1) Dizziness Current Visit: Yes Status: Acute Assessment & Plan: ASSESSMENT 1. Dizziness 2. Acute on Chronic Kidney Disease 3. Hypertension PLAN 1. Gentle fluids 2. CTA negative; neurology exam unremarkable 3. MRI with Atrophy and degenerative micro-ischemia within normal limits.Small remote infarct left basal ganglia. No acute intracranial abnormalities or evidence for evolving large vessel territory stroke. -No significant major vascular thrombosis in CT angiography of the head. -CTA neck No critical thrombosis was seen in major neck vessels. Calcified plaques at bilateral carotid bulbs and osteoproximal segment of the internal carotid arteries. A small eccentric fibrofatty plaque was seen at the osteopr oximal segment of the right internal carotid artery, causing nearly 20% luminal narrowing. 4. Hold antihypertensives - allow for permissive hypertension 5.Neurology consulted with recs to begin ASA therapy and atorvastatin 40mg. Meclizine 25mg tid prn for vertigo. 6. JANES resolved I spent 35 minutes [id number] with the patient on the day of discharge performing discharge exam, discussing hospital stay and discharge instructions with patient and caregivers, preparation of discharge records, prescriptions & referral forms and addressing any questions/concerns the patient had as documented above. - Vitals & Intake/Output Vital Signs: Vital Signs Temperature 98.2 F 11/26/23 15:47 Pulse Rate 84 11/26/23 15:47 Respiratory Rate 16 11/26/23 15:47 Blood Pressure 138/77 11/26/23 15:47 O2 Sat by Pulse Oximetry 92 L 11/26/23 15:47 Intake & Output: Intake & Output 11/24/23 11/25/23 11/26/23 11/27/23 11:59 11:59 11:59 11:59 Intake Total 480 340 Output Total 400 250 Balance 80 90 Weight 98.7 kg - Lab Result Diagrams: 11/26/23 04:10 11/26/23 04:10 Lab Results-Last 24 Hrs: Lab Results-Last 24 Hours 11/25/23 11/25/23 11/25/23 Range/Units 08:10 23:04 23:11 WBC 5.3 (4.23-9.07) x10^3/uL RBC 4.63 (4.63-6.08) x10^6/uL Hgb 13.5 L (13.7-17.5) g/dL Hct 40.3 (40.1-51.0) % MCV 87.0 (79.0-92.2) fL MCH 29.2 (25.7-32.2) pg MCHC 33.5 (32.3-36.5) g/dL RDW 13.8 (11.6-14.4) % Plt Count 191 (163-337) x10^3/uL MPV 9.5 (9.4-12.4) fL Gran % 63.6 (34.0-67.9) % Immature Gran % (Auto) 0.4 (0.001-0.429) % Nucleat RBC Rel Count 0.0 (0.00-0.2) % Eos # (Auto) 0.33 (0.04-0.54) x10^3/uL Immature Gran # (Auto) 0.02 (0.001-0.031) x10^3u/L Absolute Lymphs (auto) 1.02 L (1.32-3.57) x10^3/uL Absolute Monos (auto) 0.51 (0.30-0.82) x10^3/uL Absolute Nucleated RBC 0.00 (0.00-0.012) x10^3u/L Lymphocytes % 19.4 L (21.8-53.1) % Monocytes % 9.7 (5.3-12.2) % Eosinophils % 6.3 (0.8-7.0) % Basophils % 0.6 (0.2-1.2) % Absolute Granulocytes 3.36 (1.78-5.38) x10^3/uL Basophils # 0.03 (0.01-0.08) x10^3/uL PT (9.4-12.5) SECONDS INR (0.8-3.0) APTT (25.1-36.5) SECONDS Sodium (135-145) mmol/L Potassium (3.5-5.1) mmol/L Chloride (98-107) mmol/L Carbon Dioxide (22-30) mmol/L Anion Gap (5-15) MEQ/L BUN (9-20) mg/dL Creatinine (0.66-1.25) mg/dL Estimated GFR ML/MIN Glucose (74-106) mg/dL Lactic Acid 1.9 (0.4-2.0) Calcium (8.4-10.2) mg/dL Magnesium (1.6-2.3) mg/dL Total Bilirubin (0.2-1.3) mg/dL AST (17-59) U/L ALT (0-50) U/L Alkaline Phosphatase (38-126) U/L Troponin I (0.000-0.033) ng/mL Serum Total Protein (6.3-8.2) g/dL Albumin (3.5-5.0) g/dL Triglycerides (30-150) mg/dL Cholesterol (50-200) mg/dL LDL Cholesterol (30-100) mg/dL HDL Cholesterol (40-60) mg/dL Heart Disease Risk Ratio Urine Color Yellow (Yellow) Urine Appearance Clear (Clear) Urine pH 5.5 (4.6-8.0) Ur Specific [place] >=1.030 A (1.005-1.030) Urine Protein Negative (Negative) Urine Glucose (UA) Negative (Negative) mg/dL Urine Ketones Negative (Negative) Urine Blood Negative (Negative) Urine Nitrite Negative (Negative) Urine Bilirubin Negative (Negative) Urine Urobilinogen 1.0 A (0.2) mg/dL Ur Leukocyte Esterase Negative (Negative) U Hyaline Cast (Auto) NONE SEEN (0-2) /LPF Urine Microscopic RBC 0-2 (0-5) /HPF Urine Microscopic WBC 0-2 (0-5) /HPF Ur Epithelial Cells None Seen (None Seen) /HPF Urine Bacteria None Seen (None Seen) /HPF Urine Culture Reflexed NO (NO) 11/25/23 11/25/23 11/25/23 Range/Units 23:11 23:11 23:11 WBC (4.23-9.07) x10^3/uL RBC (4.63-6.08) x10^6/uL Hgb (13.7-17.5) g/dL Hct (40.1-51.0) % MCV (79.0-92.2) fL MCH (25.7-32.2) pg MCHC (32.3-36.5) g/dL RDW (11.6-14.4) % Plt Count (163-337) x10^3/uL MPV (9.4-12.4) fL Gran % (34.0-67.9) % Immature Gran % (Auto) (0.001-0.429) % Nucleat RBC Rel Count (0.00-0.2) % Eos # (Auto) (0.04-0.54) x10^3/uL Immature Gran # (Auto) (0.001-0.031) x10^3u/L Absolute Lymphs (auto) (1.32-3.57) x10^3/uL Absolute Monos (auto) (0.30-0.82) x10^3/uL Absolute Nucleated RBC (0.00-0.012) x10^3u/L Lymphocytes % (21.8-53.1) % Monocytes % (5.3-12.2) % Eosinophils % (0.8-7.0) % Basophils % (0.2-1.2) % Absolute Granulocytes (1.78-5.38) x10^3/uL Basophils # (0.01-0.08) x10^3/uL PT 10.9 (9.4-12.5) SECONDS INR 1.00 (0.8-3.0) APTT 27.6 (25.1-36.5) SECONDS Sodium 141 (135-145) mmol/L Potassium 3.5 (3.5-5.1) mmol/L Chloride 107 (98-107) mmol/L Carbon Dioxide 22 (22-30) mmol/L Anion Gap 15.5 H (5-15) MEQ/L BUN 22 H (9-20) mg/dL Creatinine 1.34 H (0.66-1.25) mg/dL Estimated GFR 55.9 ML/MIN Glucose 150 H (74-106) mg/dL Lactic Acid (0.4-2.0) Calcium 9.4 (8.4-10.2) mg/dL Magnesium 1.8 (1.6-2.3) mg/dL Total Bilirubin 0.90 (0.2-1.3) mg/dL AST 35 (17-59) U/L ALT 47 (0-50) U/L Alkaline Phosphatase 75 (38-126) U/L Troponin I < 0.012 (0.000-0.033) ng/mL Serum Total Protein 6.6 (6.3-8.2) g/dL Albumin 4.2 (3.5-5.0) g/dL Triglycerides (30-150) mg/dL Cholesterol (50-200) mg/dL LDL Cholesterol (30-100) mg/dL HDL Cholesterol (40-60) mg/dL Heart Disease Risk Ratio Urine Color (Yellow) Urine Appearance (Clear) Urine pH (4.6-8.0) Ur Specific [place] (1.005-1.030) Urine Protein (Negative) Urine Glucose (UA) (Negative) mg/dL Urine Ketones (Negative) Urine Blood (Negative) Urine Nitrite (Negative) Urine Bilirubin (Negative) Urine Urobilinogen (0.2) mg/dL Ur Leukocyte Esterase (Negative) U Hyaline Cast (Auto) (0-2) /LPF Urine Microscopic RBC (0-5) /HPF Urine Microscopic WBC (0-5) /HPF Ur Epithelial Cells (None Seen) /HPF Urine Bacteria (None Seen) /HPF Urine Culture Reflexed (NO) 11/26/23 11/26/23 11/26/23 Range/Units 01:51 04:10 04:10 WBC 5.1 (4.23-9.07) x10^3/uL RBC 4.49 L (4.63-6.08) x10^6/uL Hgb 13.2 L (13.7-17.5) g/dL Hct 38.8 L (40.1-51.0) % MCV 86.4 (79.0-92.2) fL MCH 29.4 (25.7-32.2) pg MCHC 34.0 (32.3-36.5) g/dL RDW 13.6 (11.6-14.4) % Plt Count 190 (163-337) x10^3/uL MPV 9.7 (9.4-12.4) fL Gran % 72.3 H (34.0-67.9) % Immature Gran % (Auto) 0.4 (0.001-0.429) % Nucleat RBC Rel Count 0.0 (0.00-0.2) % Eos # (Auto) 0.22 (0.04-0.54) x10^3/uL Immature Gran # (Auto) 0.02 (0.001-0.031) x10^3u/L Absolute Lymphs (auto) 0.84 L (1.32-3.57) x10^3/uL Absolute Monos (auto) 0.32 (0.30-0.82) x10^3/uL Absolute Nucleated RBC 0.00 (0.00-0.012) x10^3u/L Lymphocytes % 16.4 L (21.8-53.1) % Monocytes % 6.2 (5.3-12.2) % Eosinophils % 4.3 (0.8-7.0) % Basophils % 0.4 (0.2-1.2) % Absolute Granulocytes 3.71 (1.78-5.38) x10^3/uL Basophils # 0.02 (0.01-0.08) x10^3/uL PT (9.4-12.5) SECONDS INR (0.8-3.0) APTT (25.1-36.5) SECONDS Sodium (135-145) mmol/L Potassium (3.5-5.1) mmol/L Chloride (98-107) mmol/L Carbon Dioxide (22-30) mmol/L Anion Gap (5-15) MEQ/L BUN (9-20) mg/dL Creatinine (0.66-1.25) mg/dL Estimated GFR ML/MIN Glucose (74-106) mg/dL Lactic Acid (0.4-2.0) Calcium (8.4-10.2) mg/dL Magnesium (1.6-2.3) mg/dL Total Bilirubin (0.2-1.3) mg/dL AST (17-59) U/L ALT (0-50) U/L Alkaline Phosphatase (38-126) U/L Troponin I < 0.012 < 0.012 (0.000-0.033) ng/mL Serum Total Protein (6.3-8.2) g/dL Albumin (3.5-5.0) g/dL Triglycerides (30-150) mg/dL Cholesterol (50-200) mg/dL LDL Cholesterol (30-100) mg/dL HDL Cholesterol (40-60) mg/dL Heart Disease Risk Ratio Urine Color (Yellow) Urine Appearance (Clear) Urine pH (4.6-8.0) Ur Specific [place] (1.005-1.030) Urine Protein (Negative) Urine Glucose (UA) (Negative) mg/dL Urine Ketones (Negative) Urine Blood (Negative) Urine Nitrite (Negative) Urine Bilirubin (Negative) Urine Urobilinogen (0.2) mg/dL Ur Leukocyte Esterase (Negative) U Hyaline Cast (Auto) (0-2) /LPF Urine Microscopic RBC (0-5) /HPF Urine Microscopic WBC (0-5) /HPF Ur Epithelial Cells (None Seen) /HPF Urine Bacteria (None Seen) /HPF Urine Culture Reflexed (NO) 11/26/23 11/26/23 Range/Units 04:10 05:11 WBC (4.23-9.07) x10^3/uL RBC (4.63-6.08) x10^6/uL Hgb (13.7-17.5) g/dL Hct (40.1-51.0) % MCV (79.0-92.2) fL MCH (25.7-32.2) pg MCHC (32.3-36.5) g/dL RDW (11.6-14.4) % Plt Count (163-337) x10^3/uL MPV (9.4-12.4) fL Gran % (34.0-67.9) % Immature Gran % (Auto) (0.001-0.429) % Nucleat RBC Rel Count (0.00-0.2) % Eos # (Auto) (0.04-0.54) x10^3/uL Immature Gran # (Auto) (0.001-0.031) x10^3u/L Absolute Lymphs (auto) (1.32-3.57) x10^3/uL Absolute Monos (auto) (0.30-0.82) x10^3/uL Absolute Nucleated RBC (0.00-0.012) x10^3u/L Lymphocytes % (21.8-53.1) % Monocytes % (5.3-12.2) % Eosinophils % (0.8-7.0) % Basophils % (0.2-1.2) % Absolute Granulocytes (1.78-5.38) x10^3/uL Basophils # (0.01-0.08) x10^3/uL PT (9.4-12.5) SECONDS INR (0.8-3.0) APTT (25.1-36.5) SECONDS Sodium 140 (135-145) mmol/L Potassium 3.6 (3.5-5.1) mmol/L Chloride 106 (98-107) mmol/L Carbon Dioxide 23 (22-30) mmol/L Anion Gap 14.2 (5-15) MEQ/L BUN 20 (9-20) mg/dL Creatinine 1.20 (0.66-1.25) mg/dL Estimated GFR 63.9 ML/MIN Glucose 116 H (74-106) mg/dL Lactic Acid (0.4-2.0) Calcium 8.9 (8.4-10.2) mg/dL Magnesium (1.6-2.3) mg/dL Total Bilirubin 1.10 (0.2-1.3) mg/dL AST 32 (17-59) U/L ALT 41 (0-50) U/L Alkaline Phosphatase 69 (38-126) U/L Troponin I (0.000-0.033) ng/mL Serum Total Protein 6.5 (6.3-8.2) g/dL Albumin 3.9 (3.5-5.0) g/dL Triglycerides 114 (30-150) mg/dL Cholesterol 190 (50-200) mg/dL LDL Cholesterol 119 H (30-100) mg/dL HDL Cholesterol 39 L (40-60) mg/dL Heart Disease Risk Ratio 5.0 Urine Color (Yellow) Urine Appearance (Clear) Urine pH (4.6-8.0) Ur Specific [place] (1.005-1.030) Urine Protein (Negative) Urine Glucose (UA) (Negative) mg/dL Urine Ketones (Negative) Urine Blood (Negative) Urine Nitrite (Negative) Urine Bilirubin (Negative) Urine Urobilinogen (0.2) mg/dL Ur Leukocyte Esterase (Negative) U Hyaline Cast (Auto) (0-2) /LPF Urine Microscopic RBC (0-5) /HPF Urine Microscopic WBC (0-5) /HPF Ur Epithelial Cells (None Seen) /HPF Urine Bacteria (None Seen) /HPF Urine Culture Reflexed (NO) - Radiology Exams Ordered Rad Exams-Entire Visit: Radiology Procedures Category Date Time Status CHEST 1 VIEW (PORTABLE) Stat Exams 11/25/23 22:[address] ANGIOGRAPHY NECK [CT] Stat Exams 11/26/23 00:29 Completed CTA HEAD W AND/OR WO CONTRAST [CT] Stat Exams 11/26/23 00:29 Completed HEAD WITHOUT CONTRAST [CT] Stat Exams 11/25/23 22:53 Completed MRI BRAIN W/O CONTRAST [MRI] Routine Exams 11/26/23 04:39 Completed - Procedures and Test Procedures and Tests throughout Hospitalization: Therapy Orders & Screens 11/26/23 00:10 Respiratory Therapy Consult ONCE Comment: Reason For Exam: Discharge Exam General Appearance: no apparent distress Neurologic Exam: alert, 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, cooperative Eye Exam: PERRL Ears, Nose, Throat Exam: normal ENT inspection Neck Exam: normal inspection Respiratory Exam: normal breath sounds, lungs clear Cardiovascular Exam: regular rate/rhythm, normal heart sounds Gastrointestinal/Abdomen Exam: soft, normal bowel sounds Male Genitalia Exam: deferred Rectal Exam: deferred Back Exam: normal inspection Extremity Exam: normal inspection Skin Exam: normal color Final Diagnosis/Problem List - Final Discharge Diagnosis/Problem (1) Dizziness Current Visit: Yes Status: Resolved Code(s): R42 - DIZZINESS AND GIDDINESS (2) JANES (acute kidney injury) Current Visit: Yes Status: Resolved Code(s): N17.9 - ACUTE KIDNEY FAILURE, UNSPECIFIED (3) History of testicular cancer Current Visit: Yes Status: Chronic Code(s): Z85.47 - PERSONAL HISTORY OF MALIGNANT NEOPLASM OF TESTIS (4) HTN (hypertension) Current Visit: Yes Status: Chronic Code(s): I10 - ESSENTIAL (PRIMARY) HYPERTENSION - Discharge Disposition: Home, Self-Care Condition: Stable Prescriptions: New Aspirin EC 81 mg [Ecotrin 81 mg] 81 mg PO QAM 30 Days #30 tablet Atorvastatin Calcium [Lipitor 40Mg] 40 mg PO DAILY 30 Days #30 tablet Continue Amlodipine Besylate/Benazepril [Amlodipine-Benazepril 5-40 mg] 1 each PO DAILY Triamterene/Hydrochlorothiazid [Triamterene-Hctz 37.5-25 mg Tb] 1 each PO DAILY Follow up with: ANGELES FORRESTER [Primary Care Provider] -
== END 2023-11-26 17:35 | disposition home or self-care (01) ==
LOC: ED 22:12 → MED SURG 11-26 00:05
PROVIDERS: ADMIT Internal Medicine Critical Care Medicine; ATTEND Internal Medicine Critical Care Medicine
DX: R42 Dizziness and giddiness (principal); I12.9 Hypertensive chronic kidney disease with stage 1 through stage 4 chronic kidney disease, or unspecified chronic kidney disease; N18.9 Chronic kidney disease, unspecified; N17.9 Acute kidney failure, unspecified; Z85.47 Personal history of malignant neoplasm of testis; Z79.899 Other long term (current) drug therapy
CPT/HCPCS: 36000; 36415; 70450; 70496; 70498; 70551; 71045; 80053; 80061; 81001; 83605; 83721; 83735; 84484; 85025; 85610; 85730; 87040; 93005; 93041; 93268; 99285; J1650; Q3014; A9270-GY; G0378